=== PATIENT | male | born 1990 | race Two or more races ===

== ENCOUNTER 2018-07-21 23:26 | Emergency (ER) | payer SELFPAY ==
[~2018-07-21] VITALS: Ht 177.8 cm; Wt 120.2 kg
[2018-07-21 23:35] VITALS: BP 135/84
== END 2018-07-22 02:03 | disposition home or self-care (01) ==
LOC: ER 23:26
DX: J03.90 Acute tonsillitis, unspecified (principal); K11.20 Sialoadenitis, unspecified; K11.6 Mucocele of salivary gland
CPT/HCPCS: 70490